=== PATIENT | female | born 1970 | race Caucasian/White ===

== ENCOUNTER → 2019-08-10 | Outpatient (CLI) | payer BC ==
[2019-08-10 12:31] LABS: Basophils % (A) 1 %; Eosinophils # (A) 0.2 k/uL (0-0.7); Eosinophils % (A) 3 %; HCT 40.9 % (34.0-46.0); HGB 13.4 gm/dL (11.4-16.0); Lymphocytes # (A) 1.8 k/uL (1.0-4.8); Lymphocytes % (A) 36 %; MCH 31.7 pg (25.0-35.0); MCHC 32.8 g/dL (31.0-37.0); MCV 96.7 fL (80.0-100.0); Mean Platelet Volume 5.9; Monocytes # (A) 0.2 k/uL (0-1.0); Monocytes % (A) 4 %; Neutrophils # (A) 2.7 k/uL (1.3-7.7); Neutrophils % (A) 54 %; Platelet Count 272 k/uL (150-450); RBC 4.23 m/uL (3.80-5.40); RDW 12.5 % (11.5-15.5); WBC 5.1 k/uL (3.8-10.6)
== END | disposition home or self-care (01) ==
LOC: MERGE 11:28 → LABPAT 11:28
PROVIDERS: ATTEND Obstetrics & Gynecology
DX: Z01.818 Encounter for other preprocedural examination (principal); Z01.812 Encounter for preprocedural laboratory examination; I10 Essential (primary) hypertension; N92.1 Excessive and frequent menstruation with irregular cycle
CPT/HCPCS: 36415; 85025; 93005

== ENCOUNTER 2019-08-27 07:38 | Day surgery (SDC) | payer BC ==
[2019-08-26 09:01] VITALS: BMI 26.5
--- NOTE | 2019-08-26 11:58 | HP ---
HISTORY AND PHYSICAL PREOPERATIVE HISTORY AND PHYSICAL: DATE OF SURGERY: August 27, 2019 HISTORY OF PRESENT ILLNESS: The patient is a 49-year-old 3, para 2-0-1-2, who presents to the office with a history of approximately 2 years of significantly increasing cycle irregularity and heaviness, often times bleeding through protection on a fairly regular basis. She was seen approximately 6 months ago at which time options were discussed. She started an oral contraceptive pill which regulated the timing of her cycles, but they remain significantly heavy and she continues to bleed through protection. She has presented requesting diagnostic hysteroscopy with NovaSure endometrial ablation and has a tubal ligation in place for control. PAST MEDICAL HISTORY: Significant for nephrolithiasis, hyperlipidemia, hypertension, hypothyroidism, and some undefined colon issues. PAST SURGICAL HISTORY: Significant for section on 2 separate occasions, one of which included tubal ligation. She additionally has had a breast biopsy. She denies any history of anesthetic concerns. OBSTETRICAL HISTORY: 3, para 2-0-1-2 with one early miscarriage and 2 sections at term, the second with tubal ligation. This is her form of contraception. GYNECOLOGIC HISTORY: Unremarkable with no history of any infections in recent times to include STDs, though she has remote history of gonorrhea in the distant past. FAMILY HISTORY: Noncontributory. SOCIAL HISTORY: The patient is and works as a nurse. She is a former smoker, having quit in approximately 2003. She reports occasional alcohol and no other social concerns. CURRENT MEDICATIONS: Current medications include: 1. Acyclovir 800 mg daily. 2. Fenofibrate 160 mg daily. 3. Lisinopril 20 mg daily. 4. Qvar inhaler as needed. 5. Zantac 150 mg twice daily. 6. Zyrtec 10 mg daily. 7. Xanax as needed. 8. There are a number of other vitamin supplements. ALLERGIES: No known drug allergies. REVIEW OF SYSTEMS: Review of systems is confined to history of present illness. PHYSICAL EXAMINATION: Vital signs are stable and the patient is afebrile. In general, this is a well-developed, well-nourished white female in no acute distress. Her heart has a regular rhythm and rate without murmur. Her lungs are clear to auscultation bilaterally in all mendoza. Her abdomen is nondistended, has normoactive bowel sounds, soft, nontender, and without any palpable masses, hepatosplenomegaly, or hernias. Her extremities are without any cyanosis, clubbing, or edema and are nontender to palpation bilaterally. Pelvic examination demonstrates normal external genitalia and BUS with normal vaginal mucosa and cervix. There is no cervical motion tenderness. The uterus is approximately 4 to 5 weeks in size, slightly anteverted, mobile, nontender, and normal in shape, though there is the possibility of a small fundal fibroid. The adnexa are normal and nontender without mass bilaterally. ASSESSMENT AND PLAN: Menometrorrhagia. We have discussed a number of options and she tried conservative management, which has failed. She has instead requested diagnostic hysteroscopy with NovaSure endometrial ablation. The risks and complications of the procedure have been discussed at length including the risk for bleeding, bleeding requiring transfusion, infection, and injury to local structures to specifically include uterine perforation, Asherman syndrome, and subsequent hematometra. She has understood all this and has agreed to proceed. We are scheduled for the above procedures on the morning of August 27, 2019. MMODL / IJN: [id number] /
[~2019-08-27 07:38] MED LIST: DEXAMETHASONE SOD PHOSPHATE 10 MG/ML 1 ML VIAL IV ONE; HYDROmorphone 0.5 MG/0.5 ML SYRINGE IVP PRN; LACTATED RINGERS 1,000 ML IV SCH; LIDOCAINE 1% 20 ML VIAL (10MG/ML) FOR IV START INTRADERMA PRN; ONDANSETRON 4 MG/2 ML VIAL IVP ONE; Pre Op ABX Message 1 EACH MISC MISCELLANE ONE
[2019-08-27] MEDS ORDERED: SCOPOLAMINE 1.5MG/72HR PATCH TRANSDERM ONE (08:20)
[2019-08-27] MEDS ORDERED: LIDOCAINE 1% INJ 10MG/ML (20 ML MDV) ONE (08:45)
[2019-08-27] MEDS ORDERED: fentaNYL (PF) 50 MCG/ML 2 ML AMP ONE (08:45)
[2019-08-27] MEDS ORDERED: MIDAZOLAM 2 MG/2 ML VIAL ONE (08:45)
[2019-08-27] MEDS ORDERED: PROPOFOL 10 MG/ML 20 ML VIAL IV ONE (08:45)
[2019-08-27] MEDS ORDERED: KETOROLAC 30 MG/ML 1 ML VIAL ONE (08:45)
[2019-08-27] MEDS ORDERED: ONDANSETRON 4 MG/2 ML VIAL IVP PRN (09:44)
[2019-08-27] MEDS ORDERED: METOCLOPRAMIDE 5 MG/ML 2 ML VIAL IVP PRN (09:44)
[2019-08-27] MEDS ORDERED: Acetaminophen-Codeine 300-30mg TAB PO PRN ×2 (09:44)
[2019-08-27] MEDS ORDERED: KETOROLAC 30 MG/ML 1 ML VIAL IVP PRN (09:44)
[2019-08-27] MEDS ORDERED: IBUPROFEN 600 MG TAB PO PRN (09:44)
[2019-08-27] MEDS ORDERED: SIMETHICONE 80 MG CHEWABLE PO PRN (09:44)
[2019-08-27] MEDS ORDERED: diphenhydrAMINE 50 MG/ML 1 ML VIAL IVP PRN (09:44)
[2019-08-27] MEDS ORDERED: LACTATED RINGERS 1,000 ML IV SCH (09:45)
--- NOTE | 2019-08-27 09:51 | P.OP ---
Date of Procedure: 08/27/19 Preoperative Diagnosis: #1. Menometrorrhagia Postoperative Diagnosis: Same Procedure(s) Performed: #1. Diagnostic hysteroscopy #2. Failed endometrial ablation Anesthesia: other (Gen. by LMA) Surgeon: Chago Landers Estimated Blood Loss (ml): 10 Urine output (ml): 25 Pathology: none sent Condition: stable Disposition: PACU Operative Findings: Rapid pelvic examination inserted a 4-5 week anteverted mobile normal shaped uterus with normal adnexa bilaterally. Intraoperatively, the uterus sounded to 8 cm while the cervix is prepped with 3.5 cm. The settings for the NovaSure tool where a length of 5.0 cm with a width of 4.7 cm for a total power 129 W. Multiple attempts were made to pass the cavity check with both a different base unit as well as a different NovaSure tool, all of which failed to pass the cavity check making a presumptive diagnosis of possible uterine perforation. Following removal of all of the instrumentation, there was no significant ongoing bleeding from the cervix and the patient was in stable condition. The hysteroscope did demonstrate the bilateral tubal ostia as well as no obvious pathology though there was a moderate amount of blood in the fluid used for distention. Description of Procedure: The patient was prepped and draped in usual fashion after general anesthesia was administered by the anesthesiologist. Weighted speculum was placed and the anterior lip of the cervix grasped with a signal 2 tenaculum. Uterus was sounded to 8 cm with a cervical length of 3.5 cm as noted above. Serial dilation was carried out without difficulty to admit the diagnostic hysteroscope which was placed to the fundus and distended with saline. The bilateral tubal ostia were seen although there was a moderate amount of blood floating in the fluid making examination of the entire cavity more difficult. There was no obvious pathology. The diagnostic hysteroscope was set aside and the NovaSure tool placed into the uterine cavity and seated well. The settings are as noted above, a length of 5.0 cm, a width of 4.7 cm for a total power 129 W. Several attempts were made to pass the cavity check after assessing all sites of potential leak. We were unable to pass cavity check and the base unit was replaced with a different unit. Another attempt was made to pass cavity check and failed as well. All instrumentation was then removed from the patient. There was no significant ongoing bleeding from the cervix nor from the tenaculum site. Estimated blood loss for the entire case was approximately 10 mL. The only complication was the failure of the endometrial ablation. All sponge, instrument, needle counts were correct. The patient tolerated the procedure well and proceeded to the recovery room in stable condition.
[2019-08-27 09:52] VITALS: TEMP 97
[2019-08-27 10:02] VITALS: RESP 18
[2019-08-27 10:55] VITALS: BP 119/77; PULSE 84
== END 2019-08-27 11:13 | disposition home or self-care (01) ==
LOC: OR 07:38 → MERGE 10:40 → OR 11:13
PROVIDERS: ATTEND Obstetrics & Gynecology
DX: N92.1 Excessive and frequent menstruation with irregular cycle (principal); Z53.8 Procedure and treatment not carried out for other reasons; E78.5 Hyperlipidemia, unspecified; I10 Essential (primary) hypertension; E03.9 Hypothyroidism, unspecified; Z98.51 Tubal ligation status; Z87.891 Personal history of nicotine dependence; Z79.899 Other long term (current) drug therapy; K21.9 Gastro-esophageal reflux disease without esophagitis; J45.909 Unspecified asthma, uncomplicated; Z97.2 Presence of dental prosthetic device (complete) (partial)
CPT/HCPCS: 81025; 58563; J2250; J1100; J2405; J2001; J3010; J1885; J2704; J1170

== ENCOUNTER → 2020-12-15 | Outpatient (CLI) | payer BC ==
[2020-12-16 01:05] LABS: Egg White IgE 0.12 kU/L
[2020-12-16 01:06] LABS: Clam IgE <0.10 kU/L; Walnut IgE (Food) <0.10 kU/L
[2020-12-16 01:07] LABS: Scallop IgE <0.10 kU/L
[2020-12-16 01:22] LABS: Peanut IgE <0.10 kU/L; Shrimp IgE <0.10 kU/L; Soybean IgE <0.10 kU/L
[2020-12-16 01:23] LABS: Codfish IgE <0.10 kU/L
[2020-12-16 03:06] LABS: Elm IgE <0.10 kU/L; Oak IgE <0.10 kU/L
[2020-12-16 03:07] LABS: Alternaria alternata IgE <0.10 kU/L; Birch IgE 0.18 kU/L; Maple (Box Elder) IgE <0.10 kU/L
[2020-12-16 03:08] LABS: Aspergillus fumagatus IgE <0.10 kU/L; Cladosporian herbarum IgE <0.10 kU/L; Cockroach IgE 0.52 kU/L
[2020-12-16 03:09] LABS: Cat Epith & Dander IgE <0.10 kU/L; Dermato. farinae IgE 0.46 kU/L; Dog Dander IgE <0.10 kU/L
[2020-12-17 02:33] LABS: Red Top (Bentgrass) IgE 0.87 kU/L
== END | disposition home or self-care (01) ==
LOC: LABWHC1 16:13
PROVIDERS: ATTEND Internal Medicine Critical Care Medicine
DX: J45.909 Unspecified asthma, uncomplicated (principal); T78.40XA Allergy, unspecified, initial encounter
CPT/HCPCS: 36415; 82785; 85008; 86003